=== PATIENT | female | born 1995 | race Caucasian/White ===

== ENCOUNTER 2021-10-22 16:52 | Emergency (ER) | payer MEDICAID ==
[~2021-10-22] VITALS: Ht 182.9 cm; Wt 88.9 kg
[~2021-10-22 16:52] MED LIST: IBUP-844 PO
--- OUTSIDE RECORDS SUMMARY | 2021-10-22 16:56 | XMS REPORT | Clinical Summary ---
Author Author [facility] Organization [facility] Address Unknown Phone Unavailable Care Team Providers Care Manager Lighting Name Role Phone PCP Unavailable Source Comments [facility] (Labor and Delivery) documents do not appear in the [facility] Allergies Not on File Medications Please verify current medications with patient. Not on file Active Problems Not on file Social History Date Tobacco Use Types Packs/Day Years Used Never Assessed Sex Assigned at Date Recorded Not on file Last Filed Vital Signs Not on file Plan of Treatment Health Maintenance Due Date Last Done Comments Cervical Cancer Screening 1996 HPV/Cotest 1996 Pap Smear 1996 COVID-19 Vaccine (1) 2001 HPV Vaccine (1 - 2-dose 2007 series) Influenza Vaccine (#1) 2021 Hepatitis A Vaccine Aged Out No longer eligible based on patient's age to complete this topic Hepatitis B Vaccine Aged Out No longer eligible based on patient's age to complete this topic Hib Vaccine Aged Out No longer eligible based on patient's age to complete this topic IPV Vaccine Aged Out No longer eligible based on patient's age to complete this topic Meningococcal Vaccine Aged Out No longer eligib le based on patient's age to (MCV4) complete this topic Pneumococcal Vaccine: Aged Out No longer eligib le based on patient's age to Pediatrics (0 to 5 Years) complete this topic and At-Risk Patients (6 to 64 Years) Rotavirus Vaccine Aged Out No longer eligible based on patient's age to complete this topic Results Not on filefrom Last 3 Months
--- NOTE | 2021-10-22 17:07 | ED Upper Extremity ---
General Chief Complaint: Upper Extremity Stated Complaint: RT BISEP BRUISE/PAIN Source: patient Exam Limitations: no limitations History of Present Illness Date Seen by Provider: Oct 22, 2021 Time Seen by Provider: 16:54 Initial Comments 26yoF that is roughly 8 months coming in due to R arm swelling and pain. Has been going on for 3 days with pain on her right inner arm. Has never had symptoms like this before denies any previous history of DVT or PE. Denies any trauma to the area. Denies any chest pain, shortness of breath, fever, abdominal pain, nausea, vomiting, diarrhea, vaginal bleeding, loss of fluid like her water broke, contractions, and does feel baby moving. She is otherwise denying any other acute complaints Allergies and Home Medications Allergies Coded Allergies: No Known Drug Allergies (Unverified , 03/05/20) Patient Home Medication List Home Medication List Reviewed: Yes Ibuprofen (Ibu) 600 Mg Tablet, 600 MG PO Q6HR PRN for CRAMPS Prescribed by: BARTOLO JOHNSON on 03/06/20 1004 Review of Systems Constitutional: No chills, No fever EENTM: No blurred vision Respiratory: No cough Cardiovascular: No chest pain Gastrointestinal: no symptoms reported Genitourinary: no symptoms reported Musculoskeletal: muscle pain Skin: no symptoms reported Psychiatric/Neurological: No Symptoms Reported All Other Systems Reviewed Negative Unless Noted: Yes Past Pkyegkl-Qtonon-Timkvr Hx Patient Social History Tobacco Use?: Yes Immunizations Up To Date Tetanus Booster (TDap): Unknown Past Medical History Surgeries: No Sexually Transmitted Disease: No HIV/AIDS: No Family Medical History Patient reports no known family medical history. Physical Exam Vital Signs Vital Signs - First Documented 10/22/21 17:00 Temp 36.6 Pulse 75 Resp 16 B/P (MAP) 120/81 (94) Pulse Ox 96 O2 Delivery Room Air Capillary Refill : Height, Weight, BMI Height: '" Weight: lbs. oz. kg; BMI Method: General Appearance: WD/WN, no apparent distress HEENT: PERRL/EOMI, normal ENT inspection, pharynx normal Neck: non-tender, full range of motion, supple, normal inspection Cardiovascular: regular rate, rhythm, no edema, no murmur Respiratory: chest non-tender, lungs clear, normal breath sounds, no respiratory distress, no accessory muscle use Gastrointestinal: normal bowel sounds, non tender, soft; No distended, No guarding, No rebound Back: normal inspection, no CVA tenderness, no vertebral tenderness Shoulder: normal inspection, non-tender, no evidence of injury, normal ROM Elbow/Forearm: pain (Right upper inner arm), soft tissue tenderness, swelling Wrist: Yes normal inspection, Yes non-tender, Yes no evidence of injury, Yes normal ROM Hand: normal inspection, non-tender, no evidence of injury, normal ROM Neurologic/Tendon: normal sensation, normal motor functions Neurologic/Psychiatric: no motor/sensory deficits, alert, normal mood/affect Skin: normal color, warm/dry Lymphatic: no adenopathy Progress/Results/Core Measures Results/Orders Lab Results Laboratory Tests Test 10/22/21 17:25 Range/Units D-Dimer 0.82 H 0.00-0.49 UG/ML My Orders Orders - JAI HARMON MD Fibrin Degradation Products (10/22/21 17:16) Enoxaparin Injection (Lovenox Injection) (10/22/21 18:00) Vital Signs/I&O 10/22/21 10/22/21 17:00 18:15 Temp 36.6 Pulse 75 82 Resp 16 16 B/P (MAP) 120/81 (94) 136/78 Pulse Ox 96 98 O2 Delivery Room Air Room Air Progress Progress Note : Progress Note 26-year-old female with above history coming in due to right upper extremity pain. ABCs were intact and vitals were stable on presentation. Physical exam with some swelling and pain on the inside of her right arm just above her elbow. I did a [id number] ultrasound, but unfortunately we do not have a linear probe right now so had to use a curvilinear probe which had less detail. She did have a noncompressible area that was tender that was near her basilic vein. D-dimer positive. Because of this, ordered an ultrasound which will be completed tomorrow. Offered to treat her with Lovenox and discussed the risk and benefits, the patient is refusing treatment at this time and wants to await the results of the ultrasound. She does have decision capacity for this refusal. Called and discussed the case with Dr. Johnson who is on-call for [facility] and she will follow this up. The patient was then discharged home in stable condition with strict return precautions. At the time of discharge, heart rate normal, and she has no clinical signs of a PE. Departure Impression Primary Impression: Arm pain Qualified Codes: M79.601 - Pain in right arm Disposition: 01 HOME, SELF-CARE Condition: Stable Departure-Patient Inst. Decision time for Depature: 18:13 Referrals: VITOR LARIOS MD (PCP/Family) Primary Care Physician Patient Instructions: Deep Vein Thrombosis (DVT) ED Add. Discharge Instructions: I am concerned you do have a blood clot in your arm, and have scheduled an ultrasound for 9 AM tomorrow at the [place] [facility]. Just bring the form that we gave you and they will do the study. If you develop severe chest pain or severe shortness of breath prior to that then call your doctor or come back to the ER. JAI HARMON MD Oct 22, 2021 17:07
[2021-10-22] MEDS ORDERED: ENOXAPARIN 100 MG/1 ML (LOVENOX) SYR SC ONE (18:00)
[2021-10-22 18:15] VITALS: BP 136/78
== END 2021-10-22 18:15 | disposition home or self-care (01) ==
LOC: EDUNIT# 16:52 → ER FS 16:53
DX: O99.893 Other specified diseases and conditions complicating puerperium (principal); M79.601 Pain in right arm; Z3A.32 32 weeks gestation of pregnancy
CPT/HCPCS: 36415; 85379; 99281

== ENCOUNTER → 2021-10-23 | Outpatient (CLI) | payer MEDICAID ==
--- NOTE | 2021-10-23 10:22 | Diagnostic Imaging Report ---
Indication: Right arm pain Venous Doppler right upper extremity Duplex ultrasound of the venous system right upper extremity was done with grayscale, spectral wave form and color Doppler analysis There is phasic flow and a normal response to augmentation. There is good color filling and compressibility. IMPRESSION: Negative venous Doppler right upper extremity Dictated by: Dictated on workstation # [id number]
== END ==
LOC: RAD FS 09:10
PROVIDERS: ATTEND Emergency Medicine
DX: M79.601 Pain in right arm (principal)

== ENCOUNTER 2021-11-19 17:53 | Inpatient (IN) | payer MEDICAID ==
[~2021-11-19] VITALS: Ht 188 cm; Wt 88.9 kg
[2021-11-19] MEDS ORDERED: OXYTOCIN PRE-MIX DRIP 500 ML IV ONE (17:58)
[2021-11-19] MEDS ORDERED: D5 LR IV SOLUTION 1,000 ML IV ONE (17:59)
[2021-11-19] MEDS: D5 LR IV SOLUTION 1,000 ML IV SCH (18:00)
[2021-11-19] MEDS ORDERED: LIDOCAINE/EPI 2% 1:200,00 (XYLOCAINE) 10 ML VIAL ONE (18:01)
[2021-11-19] MEDS ORDERED: KETOROLAC 30 MG/ML VIAL ONE (18:30)
[2021-11-19] MEDS: OXYTOCIN PRE-MIX DRIP 500 ML IV SCH ×2 (18:31→19:07)
[2021-11-19 18:44] VITALS: BP 119/68
[2021-11-19] MEDS ORDERED: BENZOCAINE/MENTHOL (DERMOPLAST) 56 ML CAN TP PRN (18:45)
[2021-11-19] MEDS ORDERED: DIBUCAINE 1% OINTMENT 30 GM TUBE TOP PRN (18:45)
[2021-11-19] MEDS ORDERED: MEASLES,MUMPS,RUBELLA 1 EA INJ SQ ONE (18:45)
[2021-11-19] MEDS ORDERED: TETANUS,DIPTH,PERTUSS P/F (BOOSTRIX) 0.5 ML VIAL IM ONE (18:45)
[2021-11-19] MEDS ORDERED: WITCH HAZEL(TUCKS) 40 EA JAR TOP PRN (18:45)
--- NOTE | 2021-11-19 18:55 | History & Physical-OB ---
OB - Chief Complaint & HPI Date/Time Date of Admission: Date of Admission: Nov 19, 2021 at 17:58 Date seen by a Provider: Nov 19, 2021 Time Seen by a Provider: 18:00 Chief Complaint/History OB-Reason for Admission/Chief: Onset of Labor Hx : 3 Hx Para: 2 Gestational Age in Weeks: 38 Gestational Age in Days: 4 Other reason for admission: Active Labor. Increased contractions since 3 PM Admission Nurse Assessment Rev: Yes History of Labs O+, Ab neg Rub Imm HIV/RPR/HepB/C Tori 1 hr GTT GBS neg Allergies and Home Medications Allergies Coded Allergies: No Known Drug Allergies (Unverified , 03/05/20) Patient Home Medication List Home Medication List Reviewed: Yes Ibuprofen (Ibu) 600 Mg Tablet, 600 MG PO Q6HR PRN for CRAMPS Prescribed by: BARTOLO DORAN on 03/06/20 1004 OB - History Hx of Present Care: Yes Ultrasounds: Normal mid trimester US Obstetrical Complications: None Medical Complications: None Information Induced Hypertension: No Maternal Gestational Diabetes: No Hemorrhage: No Obstetrical History Hx : 3 Hx Para: 2 Number of Living Children: 2 Patient Past Medical History None Social History/Family History Smoking Cessation: Current every day smoker Immunizations Tetanus Booster (TDap): Unknown Rubella: immune RPR/VDRL: Negative GBS Status: Negative HBsAG: Negative OB - Admission Exam Physical Exam HEENT: NCAT Heart: Rhythm Normal Lungs: Clear Abdomen: Gravid Cervical Dilatation: 9cm Effacement: 100% Station: 0 Membranes: Intact Accelerations: Accelerations Present Decelerations: Early Decelerations Short Term Variability: Present Custodial Variability: Average (6-25) Contractions on Admission: < 5 Minutes Apart Intensity: Firm OB - Assessment/Plan/Diagnosis Assessment Assessment: active labor Admission Dx Third Trimester 38 week gestation Precipitous Delivery Admission Status: Inpatient Order (span 2 midnights) Reason for Inpatient Admission: Active Labor Plan Other Plan 26 yo @ 38.4 wga here in active labor Plan - Expectant delivery - GBS neg VITOR LARIOS MD Nov 19, 2021 18:55
[2021-11-19] MEDS ORDERED: oxyCODONE/APAP 5/325MG (PERCOCET 5) TABLET ONE (18:57)
[2021-11-19 18:59] VITALS: BP 113/57
[2021-11-19 19:00] LABS: BASOPHILS % (AUTO) 0 % (0-10); EOSINOPHILS # (AUTO) 0.1 10^3/uL (0.0-0.3); EOSINOPHILS % (AUTO) 1 % (0-10); HEMATOCRIT 43 % (35-52); HEMOGLOBIN 14.6 g/dL (11.5-16.0); LYMPHOCYTES # (AUTO) 1.9 10^3/uL (1.0-4.0); LYMPHOCYTES % (AUTO) 22 % (12-44); MEAN CORPUSCULAR HEMOGLOBIN 31 pg (25-34); MEAN CORPUSCULAR HGB CONC 34 g/dL (32-36); MEAN CORPUSCULAR VOLUME 91 fL (80-99); MEAN PLATELET VOLUME 12.4 fL (9.0-12.2); MONOCYTES # (AUTO) 0.5 10^3/uL (0.0-1.0); MONOCYTES % (AUTO) 6 % (0-12); NEUTROPHILS # (AUTO) 6.2 10^3/uL (1.8-7.8); NEUTROPHILS % (AUTO) 70 % (42-75); PLATELET COUNT 225 10^3/uL (130-400); WHITE BLOOD COUNT 8.8 10^3/uL (4.3-11.0)
--- NOTE | 2021-11-19 19:01 | OB Labor & Delivery Record ---
Vag Delivery Note Vag Delivery Note Date of Delivery: 11/19/21 Preoperative Diagnosis: Charley Toro is a (26 /Para / ,Gestational Age 38.4 wga here in active labor Postoperative Diagnosis: Same Surgeon: VITOR LARIOS MD Drink Box Mechanic: None Anesthesia: Natural Delivery Type: @ 1827 Findings: Viable Male infant, apgars 7/9, weight 7#14 3560 grams Lacerations: None Intact placenta with 3 vessel cord. No nuchal cord, body cord or shoulder dystocia Estimated Blood Loss: 125 ml Complications: None Condition: Stable Description of Procedure: The patient is a 26 year old female who presented in active labor. She was admitted and informed consent was obtained. Her labor course was remarkable for precipitous delivery. She progressed to complete dilatation and began to push. She was then set up for delivery. The infant's head was delivered atraumatically in the KENDALL position. The shoulders and remainder of the infant's body were then delivered without difficulty. Upon delivery, the head was held below the level of the perineum and the mouth and nares were bulb suctioned. The cord was doubly clamped and cut by FOB after 2 min delay and the infant was attended to by the pediatric staff. An intact placenta with 3-vessel cord delivered via Kylee and there was found to be minimal bleeding.~ Vigorous fundal massage was performed and the fundus was found to be firm. IV oxytocin was given. Examination of the vagina and perineum revealed no lacerations that required repair. Following the repair, sponge, instrument and needle counts were correct. Mom and baby were both in stable condition in the labor suite. VITOR LARIOS MD Nov 19, 2021 19:01
[2021-11-19 19:14] VITALS: BP 122/69
[2021-11-19 19:20] VITALS: BP 122/69
[2021-11-19 19:44] VITALS: BP 129/67
[2021-11-19 20:00] VITALS: BP 117/74
[2021-11-19] MEDS ORDERED: CATHETER FLUSH 10 ML SYR IV SCH (22:00)
[2021-11-20] VITALS: BP 121/78
[2021-11-20] MEDS: IBUPROFEN 600 MG (MOTRIN) TAB PO SCH ×5 (00:21→23:42)
[2021-11-20] MEDS: DOCUSATE SODIUM 100 MG (COLACE) CAP PO SCH ×3 (00:41→20:01)
[2021-11-20 04:00] VITALS: BP 128/74
[2021-11-20] MEDS ORDERED: SERT100T PO (07:57)
[2021-11-20 09:20] VITALS: BP 126/79
[2021-11-20] MEDS: ACETAMINOPHEN 500 MG TAB (TYLENOL) PO SCH ×3 (09:23→23:42)
[2021-11-20 12:16] VITALS: BP 122/65
--- NOTE | 2021-11-20 13:20 | Progress Note ---
Subjective Subjective/Events-last exam Doing well. Bleeding slowed. Denies significant pain. Objective Exam Last Set of Vital Signs Vital Signs Date Time Temp Pulse Resp B/P (MAP) Pulse Ox O2 Delivery O2 Flow Rate FiO2 11/20/21 12:16 36.8 80 18 122/65 (84) 96 Room Air Capillary Refill : Less Than 3 Seconds I&O Intake and Output 11/20/21 00:00 Intake Total 500 ml Balance 500 ml Intake IV Total 500 ml Daily Weight Change No General: Alert, Oriented X3, No Acute Distress Psych/Mental Status: Mood NL Results/Procedures Lab Laboratory Tests 11/19/21 17:57: White Blood Count 8.8, Red Blood Count 4.77, Hemoglobin 14.6, Hematocrit 43, Mean Corpuscular Volume 91, Mean Corpuscular Hemoglobin 31, Mean Corpuscular Hemoglobin Concent 34, Red Cell Distribution Width 11.6, Platelet Count 225, Mean Platelet Volume 12.4H, Immature Granulocyte % (Auto) 1, Neutrophils (%) (Auto) 70, Lymphocytes (%) (Auto) 22, Monocytes (%) (Auto) 6, Eosinophils (%) (Auto) 1, Basophils (%) (Auto) 0, Neutrophils # (Auto) 6.2, Lymphocytes # (Auto) 1.9, Monocytes # (Auto) 0.5, Eosinophils # (Auto) 0.1, Basophils # (Auto) 0.0, Immature Granulocyte # (Auto) 0.1 Assessment/Plan Assessment/Plan (1) Status post vaginal delivery Assessment & Plan: precipitous vaginal delivery on 11/19/21 @ 38w3d -anticipate routine post- care BARTOLO DORAN DO Nov 20, 2021 13:20
[2021-11-20 16:55] VITALS: BP 119/71
[2021-11-20 20:00] VITALS: BP 134/77
[2021-11-20] MEDS: CATHETER FLUSH 10 ML SYR IV SCH ×2 (20:49→22:47)
[2021-11-20] MEDS: D5 LR IV SOLUTION 1,000 ML IV SCH (22:49)
[2021-11-21 05:40] VITALS: BP 118/72
[2021-11-21] MEDS: IBUPROFEN 600 MG (MOTRIN) TAB PO SCH (05:41)
[2021-11-21] MEDS: ACETAMINOPHEN 500 MG TAB (TYLENOL) PO SCH (05:41)
[2021-11-21] MEDS ORDERED: IBUP-844 PO (08:08)
--- NOTE | 2021-11-21 08:09 | Discharge Inst-Women's Service ---
Discharge Inst-Women's Serv Depart Medication/Instructions New, Converted or Re-Newed RX: Transmitted to Pharmacy ([facility] in [place]) Problems Reviewed?: Yes Consults/Follow Up Additional Follow Up: Yes (Dr Coreas in 6 weeks.) Activity Activity: Activity as Tolerated Nothing Inside Vagina: No [place] (for 6 weeks.) Diet Discharge Diet: Regular Diet Return to The Hospital For: as below Symptoms to Report to : Swelling Increased, Pain Increased, Fever Over 101 Degrees F, Vaginal Discharge Foul For Any Problems or Questions: Contact Your Physician ALO KING MD Nov 21, 2021 08:09
--- NOTE | 2021-11-21 08:17 | Discharge Summary ---
Diagnosis/Chief Complaint Date of Admission Nov 19, 2021 at 17:58 Date of Discharge November 21, 2021 Admission Diagnosis Admission Diagnosis 1. Intrauterine at 38 weeks gestation Discharge Diagnosis 1. Intrauterine at 38 weeks gestation Problems/Diagnosis: (1) Status post vaginal delivery Assessment & Plan: precipitous vaginal delivery on 11/19/21 @ 38w3d -anticipate routine post- care Status: Resolved Chief Complaint/HPI Chief Complaint/HPI 26-year-old 3 now term 3 who initially presented to labor and delivery on November 19, 2021 in labor. She subsequently had precipitous delivery at 1627 on November 19, 2021. She delivered a term viable male over an intact perineum. See labor and delivery note for full details. Discharge Summary-OBS Procedures 1. Spontaneous vaginal deliveryDr. Coreas Discharge Physical Examination Allergies: Coded Allergies: No Known Drug Allergies (Unverified , 03/05/20) Vitals & I&Os Vital Sign - Last 12Hours Date Time Temp Pulse Resp B/P (MAP) Pulse Ox O2 Delivery O2 Flow Rate FiO2 11/21/21 05:40 36.3 63 18 118/72 (87) 96 Room Air General Appearance: Alert Respiratory: Clear to Auscultation Cardiovascular: Regular Rate Abdominal: Soft (With uterus firm) Skin: No Rashes Neuro: Normal Speech Hospital Course Was the Problem List Reviewed?: Yes Following delivery she underwent routine care orders. She had no complications during the remainder of hospital stay. She tolerated regular diet. She was noted to void urine and stool. Her hemoglobin on admission was 14.6. She was eager for dismissal in the morning of November 21, 2021. All questions answered and she will follow-up with Dr. Coreas in 6 weeks. Discharge Instructions to patient/family Please see electronic discharge instructions given to patient. Discharge Medications Reviewed and agree with Discharge Medication list on patient's Discharge Instruction sheet Copy Copies To 1: VITOR COREAS MD, DANIEL J MD Nov 21, 2021 08:17
[2021-11-21 09:51] VITALS: BP 118/72
[2021-11-21] MEDS: DOCUSATE SODIUM 100 MG (COLACE) CAP PO SCH (10:00)
[2021-11-21 10:01] VITALS: BP 129/83
== END 2021-11-21 10:35 | disposition home or self-care (01) | DRG 807 ==
LOC: WSo 17:53 → LDRP 17:58
PROVIDERS: ADMIT Family Medicine; ATTEND Family Medicine
PROC: 10E0XZZ Delivery of Products of Conception, External Approach (ICD-10-PCS; principal; 2021-11-19)
DX: O62.3 Precipitate labor (principal); Z37.0 Single live birth; Z3A.38 38 weeks gestation of pregnancy
CPT/HCPCS: 36415; 85025; 86850; 86900; 86901; 99212